=== PATIENT | female | born 1965 | race Asian ===

== ENCOUNTER → 2020-05-28 | Outpatient (CLI) | payer OTHER ==
--- NOTE | 2020-05-28 13:50 | RADIOLOGY REPORT (SQ) ---
EXAM DESCRIPTION: CERV SP 4 OR 5 VIEWS IMAGES COMPLETED DATE/TIME: 05/28/2020 1:38 pm REASON FOR STUDY: M54.2 CERVICALGIA M54.2 CERVICALGIA COMPARISON: None. NUMBER OF VIEWS: Five views. TECHNIQUE: AP, lateral, obliques and odontoid radiographic images acquired of the cervical spine. LIMITATIONS: None. FINDINGS: MINERALIZATION: Normal. ALIGNMENT: Straightening of the normal cervical lordosis. VERTEBRAE: Vertebral bodies of normal height. DISCS: Mild disc height loss and endplate change greatest at C6-7. FORAMINA: No osteophytes or foraminal narrowing. LATERAL AND POSTERIOR ELEMENTS: No focus at fracture or dislocation. Uncovertebral hypertrophy with resultant moderate osseous neural foraminal narrowing at C6-7 bilaterally. HARDWARE: None in the spine. SOFT TISSUES: No suspicious masses. Calcification along the interspinous ligament. Lung apices bruna r. OTHER: No other significant finding. IMPRESSION: 1. No evidence of acute bony abnormality of the cervical spine. 2. Degenerative disc changes at C6-7. Uncovertebral hypertrophy with resultant moderate osseous mavis ateral neural foraminal narrowing at that level. TECHNICAL DOCUMENTATION: JOB ID: [id number] 2010 [employer]- All Rights Reserved Reading location - IP/workstation name: [email or web address]
== END ==
LOC: RAD 13:07
PROVIDERS: ATTEND Physician Assistant
DX: M54.2 Cervicalgia (principal)
CPT/HCPCS: 72050

== ENCOUNTER 2020-06-10 17:38 | Emergency (ER) | payer OTHER ==
--- NOTE | 2020-06-10 18:47 | ER Document Report ---
ED Medical Screen (RME) - General Chief Complaint: Fall Stated Complaint: FALL/ BACK PAIN Time Seen by Provider: 06/10/20 18:14 Primary Care Provider: RAKEL BONILLA PA-C [Primary Care Provider] - Follow up as needed - HPI Notes: 06/10/20 18:44 55-year-old female presents to the emergency room by private vehicle who speaks Russian as a second language for evaluation after she fell at a store, she tripped over plywood fell on her head injured her chest her lower back and her left knee. Patient states she did lose consciousness but then she states she does not remember. Reports she had nausea no vomiting. She did take 800 mg of ibuprofen with some relief. Patient reports pain is 4 out of 5 throbbing. Due to language barrier, it is hard to follow patient. Will order initial test and have patient be seen in the back for further evaluation with Vidya Sanford have greeted and performed a rapid initial assessment of this patient. A comprehensive ED assessment and evaluation of the patient, analysis of test results and completion of the medical decision making process will be conducted by additional ED providers. PHYSICAL EXAMINATION: GENERAL: Well-appearing, well-nourished and in no acute distress. HEAD: Atraumatic, normocephalic. Tenderness to right side of forehead, no ecchymosis or open wounds. EYES: Pupils equal round extraocular movements intact, conjunctiva are normal. NECK: Normal range of motion. right trapezius muscle tenderness on palpation CV: s1, s2 regular LUNGS: No respiratory distress Musculoskeletal: Normal range of motion. Right paraspinal tenderness L1-L3. Left knee tender on palpation. NEUROLOGICAL: Normal speech, normal gait. Associate Buyer +2 bilaterally equally. SKIN: Warm, Dry, normal turgor, no rashes or lesions noted. - Related Data Allergies/Adverse Reactions: Penicillins Allergy (Verified 06/10/20 18:11) Physical Exam - Vital signs Vitals: Temp Pulse Resp BP Pulse Ox 98.3 F 64 20 134/82 H 100 06/10/20 18:00 06/10/20 18:00 06/10/20 18:00 06/10/20 18:00 06/10/20 18:00 Course - Vital Signs Vital signs: Temp Pulse Resp BP Pulse Ox 98.3 F 64 20 134/82 H 100 06/10/20 18:00 06/10/20 18:00 06/10/20 18:00 06/10/20 18:00 06/10/20 18:00 Doctor's Discharge - Discharge Referrals: RAKEL BONILLA PA-C [Primary Care Provider] - Follow up as needed
--- NOTE | 2020-06-10 19:13 | RADIOLOGY REPORT (SQ) ---
EXAM DESCRIPTION: CT HEAD WITHOUT IMAGES COMPLETED DATE/TIME: 06/10/2020 6:59 pm REASON FOR STUDY: hit head, chest, back, and knee s/p fall [id number] COMPARISON: None. TECHNIQUE: Axial images acquired through the brain without intravenous contrast. Images reviewed wi th bone, brain and subdural windows. Additional sagittal and coronal reconstructions were generated. Images stored on PACS. All CT scanners at this facility use dose modulation, iterative reconstruction, and/or weight based d osing when appropriate to reduce radiation dose to as low as reasonably achievable (ALARA). [facility]: Dose Right [facility]: CareDose [facility]: Dose Right [facility]: Teradose 4D [facility]: [employer] RADIATION DOSE: CT Rad equipment meets quality standard of care and radiation dose reduction techniq ues were employed. CTDIvol: 53.2 mGy. DLP: 964 mGy-cm. mGy. LIMITATIONS: None. FINDINGS: VENTRICLES: Normal size and contour. CEREBRUM: No masses. No hemorrhage. No midline shift. No evidence for acute infarction. Normal gra y/white matter differentiation. No areas of low density in the white matter. CEREBELLUM: No masses. No hemorrhage. No alteration of density. No evidence for acute infarction. EXTRAAXIAL SPACES: No fluid collections. No masses. ORBITS AND GLOBE: No intra- or extraconal masses. Normal contour of globe without masses. CALVARIUM: No fracture. PARANASAL SINUSES: No fluid or mucosal thickening. SOFT TISSUES: No mass or hematoma. OTHER: No other significant finding. IMPRESSION: NORMAL BRAIN CT WITHOUT CONTRAST. EVIDENCE OF ACUTE STROKE: NO. COMMENT: Quality ID # [id number]: Final reports with documentation of one or more dose reduction techniques (e.g., Automated exposure control, adjustment of the mA and/or kV according to patient size, use of iterative reconstruction technique) TECHNICAL DOCUMENTATION: JOB ID: [id number] 2010 [employer]- All Rights Reserved Reading location - IP/workstation name: [email or web address]
--- NOTE | 2020-06-10 19:14 | RADIOLOGY REPORT (SQ) ---
EXAM DESCRIPTION: KNEE LEFT 4 VIEW IMAGES COMPLETED DATE/TIME: 06/10/2020 6:49 pm REASON FOR STUDY: hit head, chest, back, and knee s/p fall [id number] COMPARISON: None. NUMBER OF VIEWS: Four views. TECHNIQUE: AP, lateral, and both oblique radiographic images acquired of the left knee. LIMITATIONS: None. FINDINGS: MINERALIZATION: Normal. BONES: No acute fracture or dislocation. No worrisome bone lesions. JOINT: No effusion. SOFT TISSUES: No soft tissue swelling. No radio-opaque foreign body. OTHER: No other significant finding. IMPRESSION: NEGATIVE STUDY OF THE LEFT KNEE. NO RADIOGRAPHIC EVIDENCE OF ACUTE INJURY. TECHNICAL DOCUMENTATION: JOB ID: [id number] 2010 [employer]- All Rights Reserved Reading location - IP/workstation name: [email or web address]
--- NOTE | 2020-06-10 19:14 | RADIOLOGY REPORT (SQ) ---
EXAM DESCRIPTION: CHEST 2 VIEWS IMAGES COMPLETED DATE/TIME: 06/10/2020 6:49 pm REASON FOR STUDY: hit head, chest, back, and knee s/p fall [id number] COMPARISON: None. EXAM PARAMETERS: NUMBER OF VIEWS: two views TECHNIQUE: Digital Frontal and Lateral radiographic views of the chest acquired. RADIATION DOSE: NA LIMITATIONS: none FINDINGS: LUNGS AND PLEURA: No opacities, masses or pneumothorax. No pleural effusion. MEDIASTINUM AND HILAR STRUCTURES: No masses or contour abnormalities. HEART AND VASCULAR STRUCTURES: Heart normal size. No evidence for failure. BONES: No acute findings. HARDWARE: None in the chest. OTHER: No other significant finding. IMPRESSION: NO ACUTE RADIOGRAPHIC FINDING IN THE CHEST. TECHNICAL DOCUMENTATION: JOB ID: [id number] 2010 [employer]- All Rights Reserved Reading location - IP/workstation name: [email or web address]
--- NOTE | 2020-06-10 19:15 | RADIOLOGY REPORT (SQ) ---
EXAM DESCRIPTION: L SPINE WHOLE IMAGES COMPLETED DATE/TIME: 06/10/2020 6:49 pm REASON FOR STUDY: hit head, chest, back, and knee s/p fall [id number] COMPARISON: None. NUMBER OF VIEWS: Five views including obliques. TECHNIQUE: AP, lateral, oblique, and sacral radiographic images acquired of the lumbar spine. LIMITATIONS: None. FINDINGS: MINERALIZATION: Normal. SEGMENTATION: Normal. No transitional anatomy. ALIGNMENT: Normal. VERTEBRAE: Maintained height. No fracture or worrisome bone lesion. DISCS: There is mild disc narrowing at C3-4 and C4-5. POSTERIOR ELEMENTS: Mild hypertrophic facet changes from L4-S1. HARDWARE: None in the spine. PARASPINAL SOFT TISSUES: Normal. PELVIS: Intact as visualized. No fractures or worrisome bone lesions. SI joints intact. OTHER: No other significant finding. IMPRESSION: Mild degenerative disc disease and facet arthropathy. No acute finding. TECHNICAL DOCUMENTATION: JOB ID: [id number] 2010 [employer]- All Rights Reserved Reading location - IP/workstation name: [email or web address]
--- NOTE | 2020-06-10 22:34 | ER Document Report ---
HPI - HPI Time Seen by Provider: 06/10/20 18:14 Pain Level: 4 Notes: 55-year-old female presents to the emergency room by private vehicle who speaks Slovenian as a second language for evaluation after she fell at a store, she tripped over plywood fell on her head injured her chest her lower back and her left knee. Patient states she did lose consciousness but then she states she does not remember. Reports she had nausea no vomiting. She did take 800 mg of ibuprofen with some relief. Patient reports pain is 4 out of 5 throbbing. - ROS Systems Reviewed and Negative: Yes All other systems reviewed and negative - MUSCULOSKELETAL Musculoskeletal: REPORTS: Extremity pain, Back Pain, Neck Pain Past Medical History - General Information source: Patient - Social History Smoking Status: Current Every Day Smoker Family History: Reviewed & Not Pertinent - Medical History Medical History: Negative Past Surgical History: Reports: Hx Section Vertical Provider Document - CONSTITUTIONAL Notes: PHYSICAL EXAMINATION: GENERAL: Well-appearing, well-nourished and in no acute distress. HEAD: Atraumatic, normocephalic. Tenderness to right side of forehead, no ecchymosis or open wounds. EYES: Pupils equal round extraocular movements intact, conjunctiva are normal. NECK: Normal range of motion. right trapezius muscle tenderness on palpation CV: s1, s2 regular, Lung sounds clear and equal bilaterally. LUNGS: No respiratory distress Musculoskeletal: Normal range of motion. Right paraspinal tenderness L1-L3. L eft knee tender on palpation. No crepitus or deformity. Strong popliteal and dorsalis pedis pulse. NEUROLOGICAL: Normal speech, normal gait. [employer] Press Operator +2 bilaterally equally. SKIN: Warm, Dry, normal turgor, no rashes or lesions noted. No ecchymosis noted. Course - Re-evaluation Re-evalutation: Chest X-Ray 06/10/20 18:22 IMPRESSION: NO ACUTE RADIOGRAPHIC FINDING IN THE CHEST. Head CT 06/10/20 18:22 IMPRESSION: NORMAL BRAIN CT WITHOUT CONTRAST. EVIDENCE OF ACUTE STROKE: NO. Knee X-Ray 06/10/20 18:22 IMPRESSION: NEGATIVE STUDY OF THE LEFT KNEE. NO RADIOGRAPHIC EVIDENCE OF ACUTE INJURY. Lumbar Spine X-Ray 06/10/20 18:22 IMPRESSION: Mild degenerative disc disease and facet arthropathy. No acute finding. - Vital Signs Vital signs: Temp Pulse Resp BP Pulse Ox 98.3 F 64 20 134/82 H 100 06/10/20 18:00 06/10/20 18:00 06/10/20 18:00 06/10/20 18:00 06/10/20 18:00 - Laboratory Results Critical Laboratory Results Reviewed: No Critical Results - Radiology Results Critical Radiology Results Reviewed: No Critical Results Discharge - Discharge Clinical Impression: Fall Qualifiers: Encounter type: initial encounter Qualified Code(s): W19.XXXA - Unspecified fall, initial encounter Contusion of left knee Qualifiers: Encounter type: initial encounter Qualified Code(s): S80.02XA - Contusion of left knee, initial encounter Condition: Stable Disposition: HOME, SELF-CARE Additional Instructions: Ice and elevate your left knee. Take medications as prescribed. Follow-up with your primary care provider for reevaluation as needed. Prescriptions: Ibuprofen [Motrin 800 mg Tablet] 800 mg PO Q8H PRN #30 tab PRN Reason: Methocarbamol [Robaxin 500 mg Tablet] 500 mg PO QIDP PRN #20 tablet PRN Reason: Referrals: RAKEL BONILLA PA-C [PHYSICIAN FLOOR COVERING CONTRACTOR] - Follow up as needed
[2020-06-10 22:49] VITALS: BP 127/78
== END 2020-06-11 00:23 | disposition home or self-care (01) ==
LOC: ER 17:38
DX: S80.02XA Contusion of left knee, initial encounter (principal); M54.2 Cervicalgia; R11.0 Nausea; R41.3 Other amnesia; F17.200 Nicotine dependence, unspecified, uncomplicated; W01.0XXA Fall on same level from slipping, tripping and stumbling without subsequent striking against object, initial encounter
CPT/HCPCS: 70450; 71046; 72110; 99284

== ENCOUNTER → 2020-06-16 | Outpatient (CLI) | payer OTHER ==
--- NOTE | 2020-06-16 16:43 | WOMENS IMAGING REPORT ---
EXAM DESCRIPTION: BILAT SCREENING MAMMO W/CAD IMAGES COMPLETED DATE/TIME: 06/16/2020 2:07 pm REASON FOR STUDY: Z12.31 ENCOUNTER FOR SCREENING MAMMOGRAM FOR MALIGNANT NEOPLASM OF BREAST Z12.31 ENCNTR SCREEN MAMMOGRAM FOR MALIGNANT NEOPLASM OF LUIS COMPARISON: Baseline study EXAM PARAMETERS: Standard craniocaudal and mediolateral oblique views of each breast recorded using digital acquisition. Read with the assistance of CAD. .[facility] - [employer] Child Care Assistant Version 9.2 LIMITATIONS: None. FINDINGS: No suspicious masses, suspicious calcifications or architectural distortion. No areas of c oncern. IMPRESSION: NEGATIVE MAMMOGRAM. BIRADS 1 BREAST DENSITY: b. There are scattered areas of fibroglandular density. BIRAD: ASSESSMENT: 1 NEGATIVE RECOMMENDATION: ROUTINE SCREENING COMMENT: The patient has been notified of the results by letter per MQSA requirements. Additional no tification policies are in place for contacting patient with suspicious or incomplete findings. Quality ID #[id number]: The [employer] recommends an annual screening mammogram for women aged 40 years or over. This facility utilizes a reminder system to ensure that all patients receive reminder letters, and/or direct phone calls for appointments. This includes reminders for routine scr eening mammograms, diagnostic mammograms, or other Breast Imaging Interventions when appropriate. Th is patient will be placed in the appropriate reminder system. TECHNICAL DOCUMENTATION: FINDING NUMBER: (1) ASSESSMENT: (1) JOB ID: [id number] 2010 [employer]- All Rights Reserved Reading location - IP/workstation name: [email or web address]
== END ==
LOC: WI 13:41
PROVIDERS: ATTEND Physician Assistant
DX: Z12.31 Encounter for screening mammogram for malignant neoplasm of breast (principal)
CPT/HCPCS: 77067